=== PATIENT | female | born 1950 | race Caucasian/White ===

== ENCOUNTER 2019-05-15 05:59 | Inpatient (IN) | payer OTHER ==
[~2019-05-15] VITALS: Ht 170.2 cm; Wt 76.8 kg
[2019-05-15 06:01] VITALS: BP 168/103
[2019-05-15 06:29] LABS: HEMOGLOBIN 15.2 gm/dL (12.0-15.0); MCH 32.2 pg (26.0-34.0); MCHC 34.5 g/dL (28.0-37.0); MCV 93.2 fL (80.0-100.0); RBC 4.72 mil/uL (4.20-5.00); RDW 13.9 % (10.5-14.5); WBC 8.3 thou/uL (4.0-11.0)
[2019-05-15] MEDS ORDERED: BREO ELLIPTA 11 EACH IH (06:33)
[2019-05-15] MEDS ORDERED: VITAMIN E400 UNIT PO (06:34)
[2019-05-15] MEDS ORDERED: NORVASC5 MG PO (06:35)
[2019-05-15] MEDS ORDERED: VITCB500GO PO (06:35)
[2019-05-15] MEDS ORDERED: LIPITOR10 MG PO (06:35)
[2019-05-15] MEDS ORDERED: FISH OIL 1,001000 M2 PO (06:36)
[2019-05-15] MEDS ORDERED: MULTIVITAMINS PO (06:36)
[2019-05-15] MEDS ORDERED: LEVOXYL75 MCG PO (06:36)
[2019-05-15] MEDS ORDERED: CALCIUM 600 +1 EAC1 PO (06:37)
[2019-05-15 06:45] LABS: CALCIUM 9.2 mg/dL (8.5-10.1); CREATININE 0.7 mg/dL (0.6-1.0); POTASSIUM 3.6 mmol/L (3.5-5.1)
[2019-05-15 07:02] LABS: TROPONIN-I 4.17 ng/mL (<0.06)
[2019-05-15 07:45] VITALS: BP 143/70
[2019-05-15 09:41] VITALS: BP 149/83
--- NOTE | 2019-05-15 11:09 | 2DMMODE ---
[facility] [place] [address] 2 D/M-MODE ECHOCARDIOGRAM Name: RIDDHIMICHELLE GREGORIO Room #: 210-P [facility] IN ..#: [id number] ������������� Admission: 05/15/19 ������������� Attend Phys: Dell Aguilera MD Discharge: ��� ������������� ��� Date of : 46 �������������������� �� Report #: [id number] �������� ��������������������������������������������[id number] THIS REPORT FOR: //name// APPROVED REPORT Study performed: 05/15/2019 09:55:09 EXAM: Comprehensive 2D, Doppler, and color-flow Echocardiogram Patient Location: Bedside Room #: 210 Status: routine BSA: 1.86 HR: 72 bpm BP: 143/70 mmHg Rhythm: NSR Other Information Study Quality: Adequate Indications Elevated Troponin Chest Pain Hypertension/HDD 2D Dimensions IVSd: 10.85 (7-11mm) LVOT Diam: 19.69 (18-24mm) LVDd: 47.34 mm PWd: 11.06 (7-11mm) Ascending Ao: 29.74 (22-36mm) LVDs: 29.91 (25-40mm) Aortic Root: 32.93 mm IVC: 14.00 mm Aortic Valve AoV Peak Chai.: 1.21 m/s AO Peak Gr.: 5.86 mmHg LVOT Max P.81 mmHg LVOT Max V: 0.98 m/s RICH Vmax: 2.45 cm2 Mitral Valve E/A Ratio: 0.7 MV Decel. Time: 180.25 ms MV E Max Chai.: 0.55 m/s MV A Chai.: 0.77 m/s MV PHT: 52.27 ms IVRT: 161.48 ms [facility] [address] [place] [address] 2 D/M-MODE ECHOCARDIOGRAM Name: MICHELLE GIBBS Room #: 210-P [facility] IN [facility]#: [id number] ������������� Admission: 05/15/19 ������������� Attend Phys: Dell Aguilera MD Discharge: ��� ������������� ��� Date of : 46 �������������������� �� Report #: [id number] �������� ��������������������������������������������[id number] Pulmonary Valve PV Peak Chai.: 0.76 m/s PV Peak Gr.: 2.30 mmHg Pulmonary Vein P Vein S: 0.62 m/s P Vein A: 0.27 m/s P Vein D: 0.29 m/s P Vein A Dur.: 120.0 msec P Vein S/D Ratio: 2.14 Tricuspid Valve TR Peak Chai.: 2.42 m/s TR Peak Gr.: 23.38 mmHg PA Pressure: 28.00 mmHg Left Ventricle The left ventricle is normal size. There is normal LV segmental wall motion. There is normal left ventricular wall thickness. Left ventricular systolic function is normal. The left ventricular ejection fraction is within the normal range. LVEF is 55-60%. Mild diastolic dysfunction is present (impaired relaxation pattern). Right Ventricle The right ventricle is normal size. The right ventricular systolic function is normal. Atria The left atrium size is normal. The right atrium size is normal. Aortic Valve The aortic valve is normal in structure. No aortic regurgitation is present. There is no aortic valvular stenosis. Mitral Valve The mitral valve is normal in structure. Trace mitral regurgitation. No evidence of mitral valve stenosis. Tricuspid Valve The tricuspid valve is normal in structure. There is trace tricuspid regurgitation. Estimated PAP 28 mmHg. There is no pulmonary hypertension. Pulmonic Valve The pulmonary valve is normal in structure. There is no pulmonic valvular regurgitation. [facility] [address] [place] [address] 2 D/M-MODE ECHOCARDIOGRAM Name: MICHELLE GIBBS Room #: 210-P ADM IN M.R.#: [id number] ������������� Admission: 05/15/19 ������������� Attend Phys: Dell Aguilera MD Discharge: ��� ������������� ��� Date of : 48 �������������������� �� Report #: [id number] �������� ��������������������������������������������[id number] [employer] The aortic root is normal in size. IVC is normal in size and collapses >50% with inspiration. Pericardium There is no pericardial effusion. Epicardial fat identified <Conclusion> Left ventricular systolic function is normal. There is normal LV segmental wall motion. LVEF is 55-60%. Mild diastolic dysfunction The aortic valve is normal in structure. No aortic regurgitation or stenosis The mitral valve is normal in structure. Trace mitral regurgitation. There is trace tricuspid regurgitation. Estimated pulmonary artery pressure of 28 mmHg. There is no pericardial effusion. Epicardial fat identified ��������������������������������������������� <ELECTRONICALLY SIGNED> ���������������������������������������� By: Samuel Zaldivar MD, FACC ��������������������������������������������� 05/15/19 1109 08 08 Samuel Zaldivar MD, FAC /INF
--- NOTE | 2019-05-15 11:50 | NUR ---
PT ARRIVED ON UNIT APPROX 0930. VSS. A&OX4. DAUGHTER AT BEDSIDE. ADMISSION COMPLETE. CONSENTS SIGNED. TELEMETRY SHEET DISCUSSED AND SIGNED. NSR ON MONITOR. R GROIN SITE CDI, NO HEMATOMA. WILL CONTINUE TO MONITOR AND FOLLOW POC.
--- NOTE | 2019-05-15 12:46 | CATHLAB ---
[facility] [address] [address] INVASIVE PROCEDURE REPORT Name: SAIMICHELLE K Room #: 210-P [facility] IN [facility]#: [id number] ������������� Admission: 05/15/19 ������������� Attend Phys: Dell Aguilera MD Discharge: ��� ������������� ��� Date of : 48 �������������������� �� Report #: [id number] �������� ��������������������������������������������[id number] THIS REPORT FOR: //name// APPROVED REPORT Study performed: 05/15/2019 08:04:07 Patient Details Patient Status: ED Room #: The patient is a 68 year-old female Event Personnel Samuel Zaldivar Equipment Maintenance Technician, Ashok Renee RN RN, Tori Candelario RTR Nancie, Michael Ndiaye Monitor Procedures Performed Left Heart Cath w/or w/o Coronaries [id number] [facility] Indication Chest pain Procedure Narrative The patient was brought urgently to the Cardiac Catheterization Laboratory and was prepped and draped in a sterile manner. The Right Groin^ was infiltrated with 1% Lidocaine subcutaneous anesthesia. A PINNACLE 6FR Sheath #[id number] sheath was inserted into the . Coronary angiography was performed using coronary diagnostic catheters. The right coronary system was accessed and visualized with a JR4 catheter. The left coronary system was accessed and visualized with a JL4 catheter. The left ventricle was accessed and visualized with a PIGTAIL catheter. Left ventricular/Aortic Valve gradient assessed via catheter pullback. Closure device was deployed with a 6 Fr MANUAL INTELLISYSTEM INFLATION #[id number] 6/7F #[id number]. The patient tolerated the procedure well and there were no complications associated with the procedure. There was no hematoma. Intraoperative Conscious Sedation Sedation start time: 8.13 Case end Time: 9.00 Fentanyl 50 mcg Versed 1 mg Fluoro Time: 4.30 minutes Dose: DAP 8352.00 cGycm2 1174 mGy Contrast Type and Amount: Omnipaque 155 ml [facility] [place] [address] INVASIVE PROCEDURE REPORT Name: MICHELLE GIBBS Room #: 210-P [facility]#: [id number] ������������� Admission: 05/15/19 ������������� Attend Phys: Dell Aguilera MD Discharge: ��� ������������� ��� Date of : 48 �������������������� �� Report #: [id number] �������� ��������������������������������������������[id number] Coronary Angiography The patient's coronary anatomy is right dominant. Diagnostic Cath Left Main Normal left main LAD Mild proximal to mid LAD plaquing. Circumflex The circumflex was large but nondominant. On the first 2 injections of the left system there appeared to be KATHY I flow in the mid circumflex. Subsequent injections without any intervention demonstrated normalization of flow (KATHY III). Normal-appearing circumflex and its branches. Etiology of flow disturbance not clear. Possible spasm versus spontaneous clot lysis OM1 2 very small mid vessel marginal branches, normal OM3 Distally arising large third marginal branch, angiographically normal Right Coronary The right coronary was dominant and angiographically normal R PDA Large posterior descending artery, angiographically normal Ramus Ramus branch, angiographically normal Left Ventriculography The left ventricle is normal in size with normal contractility. The left ventricular ejection fraction is estimated to be 60-65%. Left ventricular wall motion abnormalities are not present. There is no mitral insufficiency. Hemodynamics The aortic pressure is 156/68 mmHg with a mean of 108 mmHg. The left ventricular pressure is 138/4 mmHg with a mean of mmHg. The left ventricular end diastolic pressure is 13 mmHg. There was no gradient across the aortic valve upon pullback. Pullback from the left ventricle to the aorta revealed no gradient across the aortic valve. Conclusion 1. Normal global and regional systolic function. EF 60% 2. Normal left main 3. LAD with mild non-occlusive plaquing 4. The circumflex was large but nondominant. On the first 2 injections of the left system there appeared to be KATHY I flow in the mid circumflex. Subsequent injections without any intervention demonstrated normalization of flow (KATHY III). Normal-appearing circumflex and its [place] [id number] INVASIVE PROCEDURE REPORT Name: SAIMICHELLE Room #: 210-P [facility] IN M.R.#: [id number] ������������� Admission: 05/15/19 ������������� Attend Phys: Dell Aguilera MD Discharge: ��� ������������� ��� Date of : 48 �������������������� �� Report #: [id number] �������� ��������������������������������������������[id number] branches. Etiology of flow disturbance not clear. Possible spasm versus spontaneous clot lysis 5. Normal, dominant right coronary artery Recommendations [facility] ��������������������������������������������� <ELECTRONICALLY SIGNED> ���������������������������������������� By: Samuel Zaldivar MD, FAC ��������������������������������������������� 05/15/19 1245 124 Samuel Zaldivar MD, FACC /INF
[2019-05-15] MEDS ORDERED: LISINOPRIL10 MG PO (13:37)
[2019-05-15] MEDS ORDERED: ASPIR 8181 MG PO (13:37)
[2019-05-15] MEDS ORDERED: CLOPIDOGREL75 MG PO (13:37)
[2019-05-15] MEDS ORDERED: IMDUR 30 MG TAB30 M1 PO (13:37)
[2019-05-15 16:00] VITALS: BP 107/60
[2019-05-15 16:36] LABS: CHOLESTEROL 194 mg/dL (<200); HDL CHOLESTEROL 46 mg/dL (>40); LDL CHOLESTEROL 110 mg/dL (<100); TC:HDL 4.2 Ratio (Not establshd); TRIGLYCERIDE 190 mg/dL (<150); VLDL 38 mg/dL (<40)
--- NOTE | 2019-05-15 17:26 | EKG ---
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 : 1950 Requested By: Alfreda Contreras Order Number: [id number] MD: Samuel Zaldivar Measurements Intervals [place] Rate: 61 P: 49 OR: 158 QRS: 61 QRSD: 99 T: 76 QT: 447 QTc: 451 Interpretive Statements Sinus rhythm Normal tracing No previous ECG available for comparison Electronically Signed On 05-15-2019 17:26:30 CDT by Samuel Zaldivar [email or web address] ��������������������������������������������� <ELECTRONICALLY SIGNED> ���������������������������������������� By: Samuel Zaldivar MD, [facility] ��������������������������������������������� 05/15/19 1726 0655 0655 Samuel Zaldivar MD, FACC /EPI
--- NOTE | 2019-05-15 17:26 | EKG ---
[address] [place] [address] ELECTROCARDIOGRAM REPORT Name: MICHELLE GIBBS Room #: 210-P ADM IN .R.#: [id number] ������������������ Admission: 05/15/19 ������������������ Attend Phys: Dell Aguilera MD Discharge: ������������������ Date of : 48 Report #: [id number] ����������������������������������������������������������������� [id number] THIS REPORT FOR: //name// [facility] ED Test Date: 2019-05-15 Test Time: 06:04:33 Pat Name: MICHELLE GIBBS Department: Room: 210 Gender: F Joinery Patternmaker: AARON : 1950 Requested By: Alfreda Contreras Order Number: [id number] MD: Samuel Zaldivar Measurements Intervals [place] Rate: 105 P: 52 ND: 144 QRS: 81 QRSD: 87 T: 20 QT: 358 QTc: 474 Interpretive Statements Sinus tachycardia Otherwise no significant abnormality No previous ECG available for comparison Electronically Signed On 05-15-2019 17:26:22 CDT by Samuel Zaldivar [email or web address] ��������������������������������������������� <ELECTRONICALLY SIGNED> ���������������������������������������� By: Samuel Zaldivar MD, [facility] ��������������������������������������������� 05/15/19 1726 0604 0604 Samuel Zaldivar MD, FACC /EPI
--- NOTE | 2019-05-15 17:27 | NUR ---
CONTINUED TO CARE FOR PT THIS AFTERNOON. VSS. A&0X4. R GROIN SITE CDI. PT OFF BEDREST. FAMILY AT BEDSITE. UP AD MASHA. REPORTS HEADACHE TREATED WITH PO MEDS. ASSESSEMTNS CHARTED. MEDS GIVEN PER OCT. WILL CONTINUE TO MONITOR AND FOLLOW POC.
[2019-05-15 20:00] VITALS: BP 114/48
[2019-05-16 00:07] LABS: GLYCOHEMOGLOBIN (HGB A1C) 5.5 % (4.8-5.6)
[2019-05-16 04:00] VITALS: BP 127/82
--- NOTE | 2019-05-16 05:07 | NUR ---
A/O X 4.UP INDEPENDENTLY.COMPLAIN OF HEADACHE.TYLENOL WAS GIVEN BY DAY SHIFT.RIGHT GROIN C/D/I.NO HEMATOMA NOR BLEEDING NOTED.MONITOR SHOWS SR.WILL CONTINUE POC.
[2019-05-16 05:27] LABS: CALCIUM 8.9 mg/dL (8.5-10.1); CREATININE 0.7 mg/dL (0.6-1.0); POTASSIUM 4.3 mmol/L (3.5-5.1)
[2019-05-16 05:32] LABS: TROPONIN-I 23.32 ng/mL (<0.06)
[2019-05-16 07:29] VITALS: BP 135/82
[2019-05-16 10:19] LABS: HEMATOCRIT 39.7 % (37.0-47.0); HEMOGLOBIN 13.7 gm/dL (12.0-15.0); MCH 32.2 pg (26.0-34.0); MCHC 34.6 g/dL (28.0-37.0); MCV 93.1 fL (80.0-100.0); RBC 4.26 mil/uL (4.20-5.00); RDW 13.9 % (10.5-14.5); WBC 10.3 thou/uL (4.0-11.0)
--- NOTE | 2019-05-16 11:39 | HC ---
[facility] [place] [address] CONSULTATION Name: MICHELLE GIBBS Room #: 210-P ADM IN ..#: [id number] Admission: 05/15/19 ������������������ Attend Phys: Dell Aguilera MD Discharge: ������������������ Date of : 48 Report #: [id number] THIS REPORT FOR: //name// CC: Dell Perez DATE OF SERVICE: 05/15/2019 REASON FOR CONSULTATION: Chest pain. HISTORY OF PRESENT ILLNESS: The patient is a 68-year-old woman with a history of hypertension and dyslipidemia. She awakened last night about 2 a.m. with midsternal chest tightness radiating to her arm. She presented to the Emergency Department at around 6 a.m. where an EKG demonstrated sinus tachycardia and no acute ST or T-wave changes. She was given sublingual nitroglycerin and became hypotensive, responsive to fluid administration. Troponin was elevated. I was asked to see her in this regard. She has ongoing midsternal chest tightness. No other associated symptoms. No prior cardiac history. She denies heart failure symptoms including orthopnea, paroxysmal nocturnal dyspnea, or lower extremity edema. No history of near syncope or syncope. ALLERGIES: No known drug allergies. MEDICATIONS: Include Flonase, Breo Ellipta, atorvastatin 10 mg daily, amlodipine 5 mg daily and levothyroxine 75 mcg daily. PAST HISTORY: Medical records have been reviewed and include a history of appendectomy, cholecystectomy, hypertension and dyslipidemia. SOCIAL HISTORY: She is a nonsmoker. FAMILY HISTORY: Notable for an older brother who had coronary artery disease. REVIEW OF SYSTEMS: All systems negative except as that noted above. PHYSICAL EXAMINATION: GENERAL: Reveals a pleasant woman in no distress. She does, however, have ongoing midsternal chest tightness. VITAL SIGNS: Blood pressure is 150/80, heart rate of 80 and regular. She is afebrile. HEENT: There are neither xanthelasma, subcutaneous xanthomata, oral mucosal or digital cyanosis or kyphoscoliosis present. CHEST: Clear to auscultation and percussion. CARDIAC: Regular rate and rhythm with normal S1, S2. No murmurs or rubs. ABDOMEN: Soft and nontender. EXTREMITIES: Without cyanosis, clubbing or edema. Radial pulses are 2+. [facility] [address] [place] [address] CONSULTATION Name: MICHELLE GIBBS Room #: [address] [place] [address] IN .R.#: [id number] Admission: 05/15/19 ������������������ Attend Phys: Dell Aguilera MD Discharge: ������������������ Date of : 48 Report #: [id number] NEUROLOGIC: She is alert with a nonfocal exam. DIAGNOSTIC DATA: EKG is detailed above. LABORATORY DATA: Sodium 146, potassium 3.6. Troponin 4.17. White count 8.3, hemoglobin 15, hematocrit 44, platelet count 271. Chest x-ray is normal. IMPRESSION: 1. Non-Q-wave myocardial infarction. 2. Hypertension. 3. Dyslipidemia. RECOMMENDATIONS: 1. Therapy with anticoagulants and antiplatelets; beta blockade. 2. Urgent coronary angiography. I have discussed the angiographic procedure in detail including its associated risks. Her questions have been answered. She is agreeable to proceeding. ��������������������������������������������� <ELECTRONICALLY SIGNED> ���������������������������������������� By: Samuel Zaldivar MD, [facility] ��������������������������������������������� 05/16/19 1139 0742 0915 Samuel Zaldivar MD, FAC /nt
--- NOTE | 2019-05-16 11:50 | EKG ---
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: KASSANDRA : 1950 Requested By: Samuel Zaldivar Order Number: [id number] MD: Samuel Zaldivar Measurements Intervals [place] Rate: 68 P: 52 [place]: 154 QRS: 82 QRSD: 89 T: 82 QT: 407 QTc: 433 Interpretive Statements Sinus rhythm Borderline right axis deviation No previous ECG available for comparison Electronically Signed On 05-16-2019 11:50:39 CDT by Samuel Zaldivar [email or web address] ��������������������������������������������� <ELECTRONICALLY SIGNED> ���������������������������������������� By: Samuel Zaldivar MD, [facility] ��������������������������������������������� 05/16/19 1150 1028 1028 Samuel Zaldivar MD, FACC /EPI
[2019-05-16 11:56] VITALS: BP 114/59
--- NOTE | 2019-05-16 12:00 | EKG ---
[address] [address] ELECTROCARDIOGRAM REPORT Name: MICHELLE GIBBS Room #: 210-P ADM IN M.R.#: [id number] ������������������ Admission: 05/15/19 ������������������ Attend Phys: Dell Aguilera MD Discharge: ������������������ Date of : 46 Report #: [id number] ����������������������������������������������������������������� [id number] THIS REPORT FOR: //name// [facility] Test Date: 2019-05-16 Test Time: 07:33:11 Pat Name: MICHELLE GIBBS Department: Room: 210 Gender: F Returns Clerk: DANK : 1950 Requested By: Samuel Zaldivar Order Number: [id number] MD: Samuel Zaldivar Measurements Intervals [place] Rate: 84 P: 48 [place]: 149 QRS: 89 QRSD: 87 T: 78 QT: 361 QTc: 427 Interpretive Statements Sinus rhythm Borderline right axis deviation Compared to ECG 05/15/2019 06:55:40 No significant changes Electronically Signed On 05-16-2019 11:59:53 CDT by Samuel Zaldivar [email or web address] ��������������������������������������������� <ELECTRONICALLY SIGNED> ���������������������������������������� By: Samuel Zaldivar MD, [facility] ��������������������������������������������� 05/16/19 1159 2 2 Samuel Zaldivar MD, [facility] /EPI
--- NOTE | 2019-05-16 15:10 | NUR ---
ASSUMED CARE OF PATIENT AT 0700. ASSESSMENTS COMPLETED. PATIENT COMPLAINS OF HEADACHE WITH MINIMAL IMPROVEMENT FROM TYLENOL. GREATER RELIEF WITH HYDROCODONE. PATIENT HAS A RIGHT GROIN SITE WHICH IS CLEAN, DRY AND INTACT WITHOUT ANY TENDERNESS. PATIENT IS UP AD MASHA IN THE ROOM AND ANXIOUS ABOUT POSSIBLE DISCHARGE TOMORROW.
[2019-05-16 16:02] VITALS: BP 121/78
[2019-05-16 19:45] VITALS: BP 121/64
[2019-05-17 00:15] VITALS: BP 104/50
--- NOTE | 2019-05-17 03:35 | NUR ---
RECEIVED REPORT FROM CHARLIE REYNAGA.ASSUMED CARE AT 6570.PATIENT DENIES HEADACHE AND CHEST PAIN.MONITOR SHOWS SR.POSSIBILITY OF GOING HOME TODAY.WILL CONTINUE POC.
[2019-05-17 04:45] VITALS: BP 115/66
--- NOTE | 2019-05-17 04:46 | NUR ---
RECEIVED PT'S CARE AROUND 1909; PT. ON BED; AOX4; RELATIVES AT THE BED SIDE; REQUESTES PRN PAIN MEDICATION WITH HS MEDICATIONS; DURING ASSESSMENT C/O HEADACHE; 11/02; HS MEDICATION GIVEN; PRN PO PAIN MEDICAITON GIVEN; EDUCATED ABOUT FALL PREVENTIONS & THE IMPORTANCE OF WEARING SUCKS WHEN AMBULATING; ST. [facility]; ASESSMENT CHARGED; FOLLOWING POC; AT 2300 PT. CARE PASS TO RONNELL MOBLEY.
[2019-05-17 07:48] VITALS: BP 116/65
[2019-05-17] MEDS ORDERED: LIPITOR40 MG PO (09:50)
[2019-05-17 12:38] VITALS: BP 116/65
--- NOTE | 2019-05-17 14:18 | NUR ---
ASSUMED CARE AT SHIFT CHANGE, ALERT AND ORIENTED X4. RT GRION SITE D/C/I. VSS AND AFEBRILE. DISCHARGE AND MEDICATION INSTRUCTIONS GIVEN TO PATIENT AND SHE VERBALIZED UNDERSANDING. PATIENT DISCHARGED HOME.
== END 2019-05-17 14:13 | disposition home or self-care (01) | DRG 282 ==
LOC: ER 05:59 → TBA 07:40 → 2N 07:40 → TBA 07:44 → ER 07:44 → 2N 09:10
PROVIDERS: Emergency Medicine Emergency Medical Services; Internal Medicine; ADMIT Hospitalist
DX: I21.3 ST elevation (STEMI) myocardial infarction of unspecified site (principal); E78.5 Hyperlipidemia, unspecified; I20.1 Angina pectoris with documented spasm; E03.9 Hypothyroidism, unspecified; I10 Essential (primary) hypertension; K21.9 Gastro-esophageal reflux disease without esophagitis; Z79.899 Other long term (current) drug therapy; Z82.49 Family history of ischemic heart disease and other diseases of the circulatory system; Z90.49 Acquired absence of other specified parts of digestive tract; Z79.82 Long term (current) use of aspirin
CPT/HCPCS: 10081

== ENCOUNTER → 2019-10-15 | Outpatient (CLI) | payer OTHER ==
[~2019-10-15] MED LIST: ASPIR 8181 MG PO; BREO ELLIPTA 11 EACH IH; CALCIUM 600 +1 EAC1 PO; CLOPIDOGREL75 MG PO; FISH OIL 1,001000 M2 PO; IMDUR 30 MG TAB30 M1 PO; LEVOXYL75 MCG PO; LIPITOR10 MG PO; LIPITOR40 MG PO; LISINOPRIL10 MG PO; MULTIVITAMINS PO; NORVASC5 MG PO; VITAMIN E400 UNIT PO; VITCB500GO PO
== END ==
LOC: SJCVCIMAG 09:33
DX: I65.23 Occlusion and stenosis of bilateral carotid arteries (principal); I21.4 Non-ST elevation (NSTEMI) myocardial infarction; I10 Essential (primary) hypertension; I20.1 Angina pectoris with documented spasm; E78.5 Hyperlipidemia, unspecified; K21.9 Gastro-esophageal reflux disease without esophagitis; Z79.82 Long term (current) use of aspirin; Z79.899 Other long term (current) drug therapy

== ENCOUNTER → 2019-11-18 | Outpatient (CLI) | payer OTHER | LOC: SJCVC 09:15 | DX: Z51.81 Encounter for therapeutic drug level monitoring (principal); I10 Essential (primary) hypertension; K21.9 Gastro-esophageal reflux disease without esophagitis; E03.9 Hypothyroidism, unspecified; E78.00 Pure hypercholesterolemia, unspecified; J45.909 Unspecified asthma, uncomplicated; I25.2 Old myocardial infarction; E78.5 Hyperlipidemia, unspecified; Z78.0 Asymptomatic menopausal state; Z79.899 Other long term (current) drug therapy ==

== ENCOUNTER → 2019-12-02 | Outpatient (CLI) | payer OTHER | LOC: SJCVC 10:05 | DX: Z51.81 Encounter for therapeutic drug level monitoring (principal); K21.9 Gastro-esophageal reflux disease without esophagitis; E03.9 Hypothyroidism, unspecified; I25.2 Old myocardial infarction; I10 Essential (primary) hypertension; E78.00 Pure hypercholesterolemia, unspecified; E78.5 Hyperlipidemia, unspecified; Z79.01 Long term (current) use of anticoagulants; Z79.899 Other long term (current) drug therapy ==

== ENCOUNTER → 2019-12-09 | Outpatient (CLI) | payer OTHER | LOC: SJCVC 12:20 | DX: Z51.81 Encounter for therapeutic drug level monitoring (principal); E78.5 Hyperlipidemia, unspecified; Z79.01 Long term (current) use of anticoagulants ==

== ENCOUNTER → 2019-12-23 | Outpatient (CLI) | payer OTHER | LOC: SJCVC 10:36 | DX: Z51.81 Encounter for therapeutic drug level monitoring (principal); K21.9 Gastro-esophageal reflux disease without esophagitis; I10 Essential (primary) hypertension; I25.2 Old myocardial infarction; E78.00 Pure hypercholesterolemia, unspecified; J45.909 Unspecified asthma, uncomplicated; Z79.01 Long term (current) use of anticoagulants ==

== ENCOUNTER → 2020-01-15 | Outpatient (CLI) | payer OTHER | LOC: SJCVC 10:08 | DX: Z51.81 Encounter for therapeutic drug level monitoring (principal); Z79.01 Long term (current) use of anticoagulants ==

== ENCOUNTER → 2020-01-20 | Outpatient (CLI) | payer OTHER | LOC: SJCVC 10:11 | DX: Z51.81 Encounter for therapeutic drug level monitoring (principal); I10 Essential (primary) hypertension; I25.2 Old myocardial infarction; K21.9 Gastro-esophageal reflux disease without esophagitis; E78.00 Pure hypercholesterolemia, unspecified; E78.5 Hyperlipidemia, unspecified; Z79.01 Long term (current) use of anticoagulants; Z79.899 Other long term (current) drug therapy ==

== ENCOUNTER → 2020-01-27 | Outpatient (CLI) | payer OTHER | LOC: SJCVC 09:52 | DX: Z51.81 Encounter for therapeutic drug level monitoring (principal); K21.9 Gastro-esophageal reflux disease without esophagitis; E03.9 Hypothyroidism, unspecified; I10 Essential (primary) hypertension; I25.2 Old myocardial infarction; E78.00 Pure hypercholesterolemia, unspecified; E78.5 Hyperlipidemia, unspecified; Z79.01 Long term (current) use of anticoagulants; Z79.899 Other long term (current) drug therapy ==

== ENCOUNTER → 2020-02-04 | Outpatient (CLI) | payer OTHER | LOC: SJCVC 11:34 | PROVIDERS: ATTEND Internal Medicine | DX: Z51.81 Encounter for therapeutic drug level monitoring (principal); I10 Essential (primary) hypertension; K21.9 Gastro-esophageal reflux disease without esophagitis; I25.2 Old myocardial infarction; E78.00 Pure hypercholesterolemia, unspecified; E78.5 Hyperlipidemia, unspecified; Z79.01 Long term (current) use of anticoagulants; Z79.899 Other long term (current) drug therapy ==

== ENCOUNTER → 2020-02-11 | Outpatient (CLI) | payer OTHER | LOC: SJCVC 11:41 | PROVIDERS: ATTEND Internal Medicine | DX: I10 Essential (primary) hypertension (principal); K21.9 Gastro-esophageal reflux disease without esophagitis; E03.9 Hypothyroidism, unspecified; E78.00 Pure hypercholesterolemia, unspecified; I25.2 Old myocardial infarction; Z79.01 Long term (current) use of anticoagulants; Z79.899 Other long term (current) drug therapy ==

== ENCOUNTER → 2020-02-18 | Outpatient (CLI) | payer OTHER | LOC: SJCVC 14:27 | PROVIDERS: ATTEND Internal Medicine | DX: Z51.81 Encounter for therapeutic drug level monitoring (principal); K21.9 Gastro-esophageal reflux disease without esophagitis; E03.9 Hypothyroidism, unspecified; I10 Essential (primary) hypertension; E78.00 Pure hypercholesterolemia, unspecified; E78.5 Hyperlipidemia, unspecified; I25.2 Old myocardial infarction; Z79.01 Long term (current) use of anticoagulants; Z79.899 Other long term (current) drug therapy ==

== ENCOUNTER → 2020-02-25 | Outpatient (CLI) | payer OTHER | LOC: SJCVC 10:24 | PROVIDERS: ATTEND Internal Medicine | DX: Z51.81 Encounter for therapeutic drug level monitoring (principal); K21.9 Gastro-esophageal reflux disease without esophagitis; E03.9 Hypothyroidism, unspecified; I10 Essential (primary) hypertension; I25.2 Old myocardial infarction; E78.00 Pure hypercholesterolemia, unspecified; E78.5 Hyperlipidemia, unspecified; Z79.01 Long term (current) use of anticoagulants; Z79.899 Other long term (current) drug therapy ==

== ENCOUNTER → 2020-03-10 | Outpatient (CLI) | payer OTHER | LOC: SJCVC 10:12 | PROVIDERS: ATTEND Internal Medicine | DX: Z51.81 Encounter for therapeutic drug level monitoring (principal); I10 Essential (primary) hypertension; K21.9 Gastro-esophageal reflux disease without esophagitis; E03.9 Hypothyroidism, unspecified; I25.2 Old myocardial infarction; E78.00 Pure hypercholesterolemia, unspecified; E78.5 Hyperlipidemia, unspecified; Z79.01 Long term (current) use of anticoagulants; Z79.899 Other long term (current) drug therapy ==

== ENCOUNTER → 2020-04-07 | Outpatient (CLI) | payer OTHER | LOC: SJCVC 14:27 | PROVIDERS: ATTEND Internal Medicine | DX: Z51.81 Encounter for therapeutic drug level monitoring (principal); I10 Essential (primary) hypertension; K21.9 Gastro-esophageal reflux disease without esophagitis; E03.9 Hypothyroidism, unspecified; I25.2 Old myocardial infarction; E78.00 Pure hypercholesterolemia, unspecified; E78.5 Hyperlipidemia, unspecified; Z79.01 Long term (current) use of anticoagulants; Z79.899 Other long term (current) drug therapy ==

== ENCOUNTER → 2020-04-14 | Outpatient (CLI) | payer OTHER | LOC: SJCVC 11:04 | PROVIDERS: ATTEND Internal Medicine | DX: Z51.81 Encounter for therapeutic drug level monitoring (principal); I10 Essential (primary) hypertension; K21.9 Gastro-esophageal reflux disease without esophagitis; I25.2 Old myocardial infarction; I25.10 Atherosclerotic heart disease of native coronary artery without angina pectoris; E78.00 Pure hypercholesterolemia, unspecified; Z79.01 Long term (current) use of anticoagulants; Z79.899 Other long term (current) drug therapy ==

== ENCOUNTER → 2020-04-20 | Outpatient (CLI) | payer OTHER | LOC: SJCVC 13:28 | PROVIDERS: ATTEND Internal Medicine | DX: I65.23 Occlusion and stenosis of bilateral carotid arteries (principal); I10 Essential (primary) hypertension; E78.5 Hyperlipidemia, unspecified; I20.1 Angina pectoris with documented spasm; I21.4 Non-ST elevation (NSTEMI) myocardial infarction ==

== ENCOUNTER → 2020-04-28 | Outpatient (CLI) | payer OTHER | LOC: SJCVC 10:46 | PROVIDERS: ATTEND Internal Medicine | DX: Z51.81 Encounter for therapeutic drug level monitoring (principal); I25.2 Old myocardial infarction; I10 Essential (primary) hypertension; E03.9 Hypothyroidism, unspecified; D68.61 Antiphospholipid syndrome; Z90.49 Acquired absence of other specified parts of digestive tract; Z79.01 Long term (current) use of anticoagulants ==

== ENCOUNTER → 2020-05-26 | Outpatient (CLI) | payer OTHER | LOC: SJCVC 10:06 | PROVIDERS: ATTEND Internal Medicine | DX: Z51.81 Encounter for therapeutic drug level monitoring (principal); Z79.01 Long term (current) use of anticoagulants ==

== ENCOUNTER → 2020-06-23 | Outpatient (CLI) | payer OTHER | LOC: SJCVC 10:03 | PROVIDERS: ATTEND Internal Medicine | DX: Z51.81 Encounter for therapeutic drug level monitoring (principal); K21.9 Gastro-esophageal reflux disease without esophagitis; E03.9 Hypothyroidism, unspecified; I10 Essential (primary) hypertension; E78.00 Pure hypercholesterolemia, unspecified; I25.2 Old myocardial infarction; Z79.01 Long term (current) use of anticoagulants; Z79.899 Other long term (current) drug therapy ==

== ENCOUNTER → 2020-07-01 | Outpatient (CLI) | payer OTHER | LOC: SJCVC 10:01 | PROVIDERS: ATTEND Internal Medicine | DX: Z51.81 Encounter for therapeutic drug level monitoring (principal); K21.9 Gastro-esophageal reflux disease without esophagitis; I25.2 Old myocardial infarction; I10 Essential (primary) hypertension; I25.10 Atherosclerotic heart disease of native coronary artery without angina pectoris; E78.00 Pure hypercholesterolemia, unspecified; Z79.01 Long term (current) use of anticoagulants; Z79.899 Other long term (current) drug therapy ==

== ENCOUNTER → 2020-07-08 | Outpatient (CLI) | payer OTHER | LOC: SJCVC 10:04 | PROVIDERS: ATTEND Internal Medicine | DX: Z51.81 Encounter for therapeutic drug level monitoring (principal); I10 Essential (primary) hypertension; K21.9 Gastro-esophageal reflux disease without esophagitis; I25.2 Old myocardial infarction; E78.00 Pure hypercholesterolemia, unspecified; Z79.01 Long term (current) use of anticoagulants; Z79.899 Other long term (current) drug therapy ==

== ENCOUNTER → 2020-07-27 | Outpatient (CLI) | payer OTHER | LOC: SJCVC 10:04 | PROVIDERS: ATTEND Internal Medicine | DX: Z51.81 Encounter for therapeutic drug level monitoring (principal); I10 Essential (primary) hypertension; I25.2 Old myocardial infarction; Z79.01 Long term (current) use of anticoagulants ==

== ENCOUNTER → 2020-08-03 | Outpatient (CLI) | payer OTHER | LOC: SJCVC 11:15 | PROVIDERS: ATTEND Internal Medicine | DX: Z51.81 Encounter for therapeutic drug level monitoring (principal); K21.9 Gastro-esophageal reflux disease without esophagitis; I10 Essential (primary) hypertension; E78.00 Pure hypercholesterolemia, unspecified; I25.2 Old myocardial infarction; E78.5 Hyperlipidemia, unspecified; Z79.01 Long term (current) use of anticoagulants; Z79.899 Other long term (current) drug therapy ==

== ENCOUNTER → 2020-08-17 | Outpatient (CLI) | payer OTHER | LOC: SJCVC 10:18 | PROVIDERS: ATTEND Internal Medicine | DX: Z51.81 Encounter for therapeutic drug level monitoring (principal); I10 Essential (primary) hypertension; I25.2 Old myocardial infarction; E78.00 Pure hypercholesterolemia, unspecified; E78.5 Hyperlipidemia, unspecified; K21.9 Gastro-esophageal reflux disease without esophagitis; E03.9 Hypothyroidism, unspecified; Z79.01 Long term (current) use of anticoagulants ==

== ENCOUNTER → 2020-08-24 | Outpatient (CLI) | payer OTHER | LOC: SJCVC 14:01 | PROVIDERS: ATTEND Internal Medicine | DX: Z51.81 Encounter for therapeutic drug level monitoring (principal); K21.9 Gastro-esophageal reflux disease without esophagitis; I10 Essential (primary) hypertension; I25.2 Old myocardial infarction; E78.00 Pure hypercholesterolemia, unspecified; Z79.01 Long term (current) use of anticoagulants; Z79.899 Other long term (current) drug therapy ==

== ENCOUNTER → 2020-09-07 | Outpatient (CLI) | payer OTHER | LOC: SJCVC 10:23 | PROVIDERS: ATTEND Internal Medicine | DX: Z51.81 Encounter for therapeutic drug level monitoring (principal); K21.9 Gastro-esophageal reflux disease without esophagitis; I10 Essential (primary) hypertension; I25.2 Old myocardial infarction; E78.00 Pure hypercholesterolemia, unspecified; E78.5 Hyperlipidemia, unspecified; Z78.0 Asymptomatic menopausal state; Z79.01 Long term (current) use of anticoagulants; Z79.899 Other long term (current) drug therapy ==

== ENCOUNTER → 2020-09-14 | Outpatient (CLI) | payer OTHER | LOC: SJCVC 10:25 | PROVIDERS: ATTEND Internal Medicine | DX: Z51.81 Encounter for therapeutic drug level monitoring (principal); Z79.01 Long term (current) use of anticoagulants; Z72.89 Other problems related to lifestyle; Z98.890 Other specified postprocedural states; Z90.710 Acquired absence of both cervix and uterus; Z98.51 Tubal ligation status; Z90.89 Acquired absence of other organs ==

== ENCOUNTER → 2020-09-21 | Outpatient (CLI) | payer OTHER | LOC: SJCVC 09:57 | PROVIDERS: ATTEND Internal Medicine | DX: Z51.81 Encounter for therapeutic drug level monitoring (principal); Z79.01 Long term (current) use of anticoagulants; Z72.89 Other problems related to lifestyle; Z90.89 Acquired absence of other organs; Z90.710 Acquired absence of both cervix and uterus; Z98.890 Other specified postprocedural states; Z98.51 Tubal ligation status ==

== ENCOUNTER → 2020-10-05 | Outpatient (CLI) | payer OTHER | LOC: SJCVC 10:22 | PROVIDERS: ATTEND Internal Medicine | DX: Z51.81 Encounter for therapeutic drug level monitoring (principal); I10 Essential (primary) hypertension; K21.9 Gastro-esophageal reflux disease without esophagitis; E78.00 Pure hypercholesterolemia, unspecified; I25.2 Old myocardial infarction; E78.5 Hyperlipidemia, unspecified; Z79.01 Long term (current) use of anticoagulants; Z79.899 Other long term (current) drug therapy ==

== ENCOUNTER → 2020-10-27 | Outpatient (CLI) | payer OTHER | LOC: SJCVC 10:54 | PROVIDERS: ATTEND Internal Medicine | DX: I20.1 Angina pectoris with documented spasm (principal); I21.4 Non-ST elevation (NSTEMI) myocardial infarction; I10 Essential (primary) hypertension; E78.5 Hyperlipidemia, unspecified; I65.23 Occlusion and stenosis of bilateral carotid arteries; K21.9 Gastro-esophageal reflux disease without esophagitis; E03.9 Hypothyroidism, unspecified; I25.2 Old myocardial infarction; E78.00 Pure hypercholesterolemia, unspecified; Z79.899 Other long term (current) drug therapy; Z79.01 Long term (current) use of anticoagulants; Z72.89 Other problems related to lifestyle ==

== ENCOUNTER → 2020-11-24 | Outpatient (CLI) | payer OTHER | LOC: SJCVC 11:54 | PROVIDERS: ATTEND Internal Medicine | DX: Z51.81 Encounter for therapeutic drug level monitoring (principal); K21.9 Gastro-esophageal reflux disease without esophagitis; I10 Essential (primary) hypertension; I25.2 Old myocardial infarction; E78.00 Pure hypercholesterolemia, unspecified; E03.9 Hypothyroidism, unspecified; Z79.01 Long term (current) use of anticoagulants; Z79.899 Other long term (current) drug therapy; Z72.89 Other problems related to lifestyle ==

== ENCOUNTER → 2020-11-28 | Outpatient (CLI) | payer OTHER | LOC: SJCVC 10:01 | PROVIDERS: ATTEND Internal Medicine | DX: Z51.81 Encounter for therapeutic drug level monitoring (principal); K21.9 Gastro-esophageal reflux disease without esophagitis; E03.9 Hypothyroidism, unspecified; I10 Essential (primary) hypertension; I25.2 Old myocardial infarction; E78.00 Pure hypercholesterolemia, unspecified; E78.5 Hyperlipidemia, unspecified; Z79.01 Long term (current) use of anticoagulants ==

== ENCOUNTER → 2020-12-08 | Outpatient (CLI) | payer OTHER | LOC: SJCVC 13:10 | PROVIDERS: ATTEND Internal Medicine | DX: Z51.81 Encounter for therapeutic drug level monitoring (principal); K21.9 Gastro-esophageal reflux disease without esophagitis; E03.9 Hypothyroidism, unspecified; I10 Essential (primary) hypertension; I25.2 Old myocardial infarction; E78.00 Pure hypercholesterolemia, unspecified; E78.5 Hyperlipidemia, unspecified; Z79.01 Long term (current) use of anticoagulants; Z86.2 Personal history of diseases of the blood and blood-forming organs and certain disorders involving the immune mechanism; Z79.899 Other long term (current) drug therapy ==

== ENCOUNTER → 2020-12-22 | Outpatient (CLI) | payer OTHER | LOC: SJCVC 09:59 | PROVIDERS: ATTEND Internal Medicine | DX: Z51.81 Encounter for therapeutic drug level monitoring (principal); K21.9 Gastro-esophageal reflux disease without esophagitis; E03.9 Hypothyroidism, unspecified; I10 Essential (primary) hypertension; I25.2 Old myocardial infarction; E78.5 Hyperlipidemia, unspecified; E78.00 Pure hypercholesterolemia, unspecified; J45.909 Unspecified asthma, uncomplicated; Z79.01 Long term (current) use of anticoagulants; Z79.899 Other long term (current) drug therapy ==

== ENCOUNTER → 2021-01-27 | Outpatient (CLI) | payer OTHER | LOC: SJCVC 10:05 | PROVIDERS: ATTEND Internal Medicine | DX: Z51.81 Encounter for therapeutic drug level monitoring (principal); K21.9 Gastro-esophageal reflux disease without esophagitis; I10 Essential (primary) hypertension; I25.2 Old myocardial infarction; I25.10 Atherosclerotic heart disease of native coronary artery without angina pectoris; E78.00 Pure hypercholesterolemia, unspecified; E78.5 Hyperlipidemia, unspecified; E03.9 Hypothyroidism, unspecified; Z79.01 Long term (current) use of anticoagulants; Z79.899 Other long term (current) drug therapy ==

== ENCOUNTER → 2021-02-24 | Outpatient (CLI) | payer OTHER | LOC: SJCVC 13:30 | PROVIDERS: ATTEND Internal Medicine | DX: Z51.81 Encounter for therapeutic drug level monitoring (principal); E03.9 Hypothyroidism, unspecified; K21.9 Gastro-esophageal reflux disease without esophagitis; E78.00 Pure hypercholesterolemia, unspecified; I10 Essential (primary) hypertension; Z79.01 Long term (current) use of anticoagulants; Z79.899 Other long term (current) drug therapy; Z72.89 Other problems related to lifestyle ==

== ENCOUNTER → 2021-03-28 | Outpatient (CLI) | payer OTHER | LOC: SJCVC 14:14 | PROVIDERS: ATTEND Internal Medicine | DX: Z51.81 Encounter for therapeutic drug level monitoring (principal); K21.9 Gastro-esophageal reflux disease without esophagitis; I25.2 Old myocardial infarction; I10 Essential (primary) hypertension; E78.00 Pure hypercholesterolemia, unspecified; E78.5 Hyperlipidemia, unspecified; Z79.01 Long term (current) use of anticoagulants; Z79.899 Other long term (current) drug therapy ==

== ENCOUNTER → 2021-04-06 | Outpatient (CLI) | payer OTHER | LOC: SJCVC 11:32 | PROVIDERS: ATTEND Internal Medicine | DX: Z51.81 Encounter for therapeutic drug level monitoring (principal); K21.9 Gastro-esophageal reflux disease without esophagitis; E03.9 Hypothyroidism, unspecified; I10 Essential (primary) hypertension; E78.5 Hyperlipidemia, unspecified; E78.00 Pure hypercholesterolemia, unspecified; Z79.01 Long term (current) use of anticoagulants ==

== ENCOUNTER → 2021-04-14 | Outpatient (CLI) | payer OTHER | LOC: SJCVC 10:29 | PROVIDERS: ATTEND Internal Medicine | DX: Z51.81 Encounter for therapeutic drug level monitoring (principal); K21.9 Gastro-esophageal reflux disease without esophagitis; E03.9 Hypothyroidism, unspecified; I10 Essential (primary) hypertension; I25.2 Old myocardial infarction; E78.00 Pure hypercholesterolemia, unspecified; E78.5 Hyperlipidemia, unspecified; Z79.01 Long term (current) use of anticoagulants ==

== ENCOUNTER → 2021-04-21 | Outpatient (CLI) | payer OTHER | LOC: SJCVC 10:05 | PROVIDERS: ATTEND Internal Medicine | DX: Z51.81 Encounter for therapeutic drug level monitoring (principal); K21.9 Gastro-esophageal reflux disease without esophagitis; E03.9 Hypothyroidism, unspecified; I10 Essential (primary) hypertension; I25.2 Old myocardial infarction; I65.23 Occlusion and stenosis of bilateral carotid arteries; E78.00 Pure hypercholesterolemia, unspecified; E78.5 Hyperlipidemia, unspecified; Z79.01 Long term (current) use of anticoagulants ==

== ENCOUNTER → 2021-05-05 | Outpatient (CLI) | payer OTHER | LOC: SJCVC 11:17 | PROVIDERS: ATTEND Internal Medicine | DX: Z51.81 Encounter for therapeutic drug level monitoring (principal); K21.9 Gastro-esophageal reflux disease without esophagitis; E03.9 Hypothyroidism, unspecified; I25.2 Old myocardial infarction; Z79.01 Long term (current) use of anticoagulants ==

== ENCOUNTER → 2021-06-02 | Outpatient (CLI) | payer OTHER | LOC: SJCVC 10:01 | PROVIDERS: ATTEND Internal Medicine | DX: Z51.81 Encounter for therapeutic drug level monitoring (principal); K21.9 Gastro-esophageal reflux disease without esophagitis; E03.9 Hypothyroidism, unspecified; I10 Essential (primary) hypertension; E78.00 Pure hypercholesterolemia, unspecified; Z79.01 Long term (current) use of anticoagulants ==

== ENCOUNTER → 2021-06-29 | Outpatient (CLI) | payer OTHER | LOC: SJCVC 11:12 | PROVIDERS: ATTEND Internal Medicine | DX: Z51.81 Encounter for therapeutic drug level monitoring (principal); Z79.01 Long term (current) use of anticoagulants ==

== ENCOUNTER → 2021-07-17 | Outpatient (CLI) | payer OTHER | LOC: SJCVC 10:55 | PROVIDERS: ATTEND Internal Medicine | DX: Z51.81 Encounter for therapeutic drug level monitoring (principal); Z79.01 Long term (current) use of anticoagulants ==

== ENCOUNTER → 2021-08-17 | Outpatient (CLI) | payer OTHER | LOC: SJCVC 10:09 | PROVIDERS: ATTEND Internal Medicine | DX: Z51.81 Encounter for therapeutic drug level monitoring (principal); Z79.01 Long term (current) use of anticoagulants ==

== ENCOUNTER → 2021-09-14 | Outpatient (CLI) | payer OTHER | LOC: SJCVC 10:09 | PROVIDERS: ATTEND Internal Medicine | DX: Z51.81 Encounter for therapeutic drug level monitoring (principal); K21.9 Gastro-esophageal reflux disease without esophagitis; E78.00 Pure hypercholesterolemia, unspecified; I10 Essential (primary) hypertension; E78.5 Hyperlipidemia, unspecified; Z79.01 Long term (current) use of anticoagulants; Z79.899 Other long term (current) drug therapy; Z95.818 Presence of other cardiac implants and grafts; Z82.49 Family history of ischemic heart disease and other diseases of the circulatory system; Z72.89 Other problems related to lifestyle ==

== ENCOUNTER → 2021-10-16 | Outpatient (CLI) | payer OTHER | LOC: SJCVC 10:03 | PROVIDERS: ATTEND Internal Medicine | DX: Z51.81 Encounter for therapeutic drug level monitoring (principal); Z79.01 Long term (current) use of anticoagulants ==